=== PATIENT | female | born 1965 | race Caucasian/White ===

== ENCOUNTER → 2020-12-25 00:01 | Outpatient (BNVA) | payer BC, SELFPAY | PROVIDERS: Family Provider Nurse Practitioner Family; PCP Registered Nurse; Visit Provider Registered Nurse | DX: R53.83 Other fatigue (principal); E78.5 Hyperlipidemia, unspecified; Z13.6 Encounter for screening for cardiovascular disorders | CPT/HCPCS: 80053; 80061; 84443; 85025 ==

== ENCOUNTER 2020-12-30 11:01 | Outpatient (CLI) | payer BC, SELFPAY ==
--- NOTE | 2020-12-30 11:06 | MM_ITS ---
WS: [id number] BILATERAL DIGITAL SCREENING MAMMOGRAPHY WITH CAD CLINICAL INFORMATION: SCREENING HISTORY: Screening mammogram. No current complaints. COMPARISON: None. TECHNIQUE: Bilateral CC and MLO views. FINDINGS: Scattered fibroglandular densities bilaterally. 9 mm irregular asymmetric density upper outer left br east measuring 9 mm. This is posterior depth. Recommend left diagnostic mammography and ultrasound fo r further evaluation. Right breast is unremarkable. Bilateral punctate calcifications. MM/[place] [id number] IMPRESSION: BI-RADS: 0-Incomplete: Need additional imaging evaluation FOLLOW UP: Need Additional Imaging Recommend LEFT diagnostic mammography and ultrasound for further evaluation
== END 2020-12-30 11:02 | disposition home or self-care (01) ==
LOC: RADSHAW 11:05
PROVIDERS: PCP Registered Nurse; Visit Provider Registered Nurse
DX: Z12.31 Encounter for screening mammogram for malignant neoplasm of breast (principal)
CPT/HCPCS: 77067

== ENCOUNTER 2021-01-20 11:09 | Outpatient (CLI) | payer BC, SELFPAY ==
--- NOTE | 2021-01-20 11:30 | MM_ITS ---
WS: [id number] LEFT DIGITAL MAMMOGRAPHY WITH CAD CLINICAL INFORMATION: 9 mm irregular asymmetric density LT breast COMPARISON: December 30, 2020 TECHNIQUE: 4 views of the left breast were obtained. FINDINGS: Scattered fibroglandular densities of the left breast. Stable 9 mm irregular asymmetric density upper outer left breast. Ultrasound is pending. ULTRASOUND BREAST LEFT TECHNIQUE: Ultrasound left breast focused area of concern. CLINICAL INFORMATION: 9 mm irregular asymmetric density LT breast COMPARISON: None. FINDINGS: Ultrasound left breast at the 2 and 3:00 position. Hypoechoic lesion at the 3:00 position 3 cm from t he nipple which may be intraductal with increased vascularity. This measures 8.6 x 4.6 x 6.4 mm. Logan mmend further evaluation with ultrasound-guided biopsy. Incidental ductal ectasia at the 2:00 position with a tiny incidental cyst or prominent duct. MM/[place] [id number] IMPRESSION: BI-RADS: 4-Suspicious Finding-Biopsy Should Be Considered FOLLOW UP: US Guided Biopsy Recommended
--- NOTE | 2021-01-20 12:00 | US_ITS ---
WS: [id number] LEFT DIGITAL MAMMOGRAPHY WITH CAD CLINICAL INFORMATION: 9 mm irregular asymmetric density LT breast COMPARISON: December 30, 2020 TECHNIQUE: 4 views of the left breast were obtained. FINDINGS: Scattered fibroglandular densities of the left breast. Stable 9 mm irregular asymmetric density upper outer left breast. Ultrasound is pending. ULTRASOUND BREAST LEFT TECHNIQUE: Ultrasound left breast focused area of concern. CLINICAL INFORMATION: 9 mm irregular asymmetric density LT breast COMPARISON: None. FINDINGS: Ultrasound left breast at the 2 and 3:00 position. Hypoechoic lesion at the 3:00 position 3 cm from t he nipple which may be intraductal with increased vascularity. This measures 8.6 x 4.6 x 6.4 mm. Logan mmend further evaluation with ultrasound-guided biopsy. Incidental ductal ectasia at the 2:00 position with a tiny incidental cyst or prominent duct. US/US breast LT limited* [id number] IMPRESSION: BI-RADS: 4-Suspicious Finding-Biopsy Should Be Considered FOLLOW UP: US Guided Biopsy Recommended
== END 2021-01-20 11:10 | disposition home or self-care (01) ==
LOC: RADSHAW 11:13
PROVIDERS: PCP Registered Nurse; Visit Provider Registered Nurse
DX: N64.89 Other specified disorders of breast (principal); N60.42 Mammary duct ectasia of left breast
CPT/HCPCS: 76642; 77065

== ENCOUNTER 2021-01-23 07:29 | Outpatient (CLI) | payer BC, SELFPAY ==
--- NOTE | 2021-01-23 08:00 | US_ITS ---
WS: [id number] ULTRASOUND-GUIDED LEFT BREAST BIOPSY HISTORY: Intraductal left breast lesion at 3:00 COMPARISON: 01/20/2021 and 12/30/2020 Procedure, risks and complications are explained to the patient. Medications are reviewed. Consent is obtained. The mass in the LEFT breast is localized with ultrasound. Mass localizes to 3:00, 3 cm from the nippl e. Skin is cleansed with ChloraPrep and anesthetized with 1% buffered lidocaine. Small dermatome is m devin. Under sterile conditions mass is biopsied with a 14-gauge Achieve needle. After the initial biop sy this mass nearly completely collapsed upon itself. Multiple core biopsies are performed. Material placed in formalin and sent to pathology for review. No complications encountered. Breast tissue marker (Bard ultrasound enhanced ribbon): Single. Patient left the radiology suite with no complications. Patient is instructed to return to [facility] concerns. Note: This lesion at 3:00, 3 cm from nipple nearly completely collapsed during this biopsy. Biopsy cl ip was placed at the site of the biopsy. Localization for surgical removal may be attempted by ultras ound but stereotactic localization may be necessary if the lesion and biopsy clip are not apparent. US/[place] [id number] IMPRESSION: 1. Uncomplicated core needle biopsy LEFT breast mass at 3:00. PATHOLOGY: Atypical lobular hyperplasia. No invasive malignancy. RECOMMENDATION: Excisional biopsy recommended by pathology.
== END 2021-01-23 07:30 | disposition home or self-care (01) ==
LOC: RAD 07:36
PROVIDERS: PCP Registered Nurse; Visit Provider Registered Nurse
DX: N64.9 Disorder of breast, unspecified (principal); N62 Hypertrophy of breast
CPT/HCPCS: 19083; 88305

== ENCOUNTER → 2021-02-13 14:28 | Outpatient (BNVA) | payer BC, SELFPAY | PROVIDERS: PCP Registered Nurse; Visit Provider Surgery | DX: Z20.822 Contact with and (suspected) exposure to COVID-19 (principal) | CPT/HCPCS: 87635 ==

== ENCOUNTER 2021-02-18 08:01 | Day surgery (SDC) | payer BC, SELFPAY ==
[2021-02-17 13:43] VITALS: BMI 29.8
[2021-02-18] VITALS (7 sets, daily range): BP systolic 105–133; BP diastolic 56–74; PULSE 50–70; RESP 16–18; TEMP 36.2–36.7; O2SAT 93–100
--- NOTE | 2021-02-18 08:10 | US_ITS ---
WS: [id number] ULTRASOUND-GUIDED LEFT BREAST NEEDLE LOCALIZATION HISTORY: LT BREAST MASS Procedure, risks and complications were explained to the patient. Consent is obtained. Skin is cleansed with ChloraPrep and anesthetized with 1% buffered lidocaine. Needle and guidewire pl aced to the area of concern with no complications. Ultrasound guidance performed during the needle lo calization. Guidewire is left within the lesion. Guidewire secured and no complications encountered. Patient is being transported to the OR suite. Specimen radiograph is also reviewed. The small lesion is very difficult to visualize on the specimen . The wire is intact and there is a small area along the wire does appear to be localized and previou sly biopsied lesion. RECOMMENDATIONS: Surgical and oncologic follow-up. US/US breast surgical specimen IMPRESSION: 1. Uncomplicated wire localization of the LEFT breast mass. 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
--- NOTE | 2021-02-18 08:10 | US_ITS ---
WS: [id number] ULTRASOUND-GUIDED LEFT BREAST NEEDLE LOCALIZATION HISTORY: LT BREAST MASS Procedure, risks and complications were explained to the patient. Consent is obtained. Skin is cleansed with ChloraPrep and anesthetized with 1% buffered lidocaine. Needle and guidewire pl aced to the area of concern with no complications. Ultrasound guidance performed during the needle lo calization. Guidewire is left within the lesion. Guidewire secured and no complications encountered. Patient is being transported to the OR suite. Specimen radiograph is also reviewed. The small lesion is very difficult to visualize on the specimen . The wire is intact and there is a small area along the wire does appear to be localized and previou sly biopsied lesion. RECOMMENDATIONS: Surgical and oncologic follow-up. US/[place] [id number] IMPRESSION: 1. Uncomplicated wire localization of the LEFT breast mass. 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
--- NOTE | 2021-02-18 09:19 | W.PM.OPSUD ---
Surgery/Procedure H&P Update DATE OF PROCEDURE: February 18, 2021 DATE H&P PERFORMED: 01/30/21 H&P UPDATE INFORMATION: I have reviewed H&P completed within last 30 days, I have examined patient prior to procedure and No changes to prior documentation PLANNED PROCEDURE: Operation Date: 02/18/21 11:50 Proposed Procedures p Breast Biopsy Needle Localization [id number] N63.20(Left) - Slick Lott MD s Left Breast Lumpectomy(Left) - Slick Lott MD
[2021-02-18] MEDS: sodium chloride 0.9% 1,000 ML 30 ML IV (09:42)
--- NOTE | 2021-02-18 10:50 | ANES.PREANE2 ---
Pre-Anesthetic Assessment Pre-Anesthetic Assessment: Height/Weight: Height 1.63 m Weight 78.925 kg Temp Pulse Resp BP Pulse Ox 98.1 F 70 18 133/56 98 02/18/21 09:29 02/18/21 09:29 02/18/21 09:29 02/18/21 09:29 02/18/21 09:29 Preop Diagnosis: Left breast mammographic abnormality Proposed Procedure: Operation Date: 02/18/21 11:50 Proposed Procedures p Breast Biopsy Needle Localization [id number] N63.20(Left) - Slick Lott MD s Left Breast Lumpectomy(Left) - Slick Lott MD Familial anesthetic complications: None Was Beta Jewel taken within 24 hours: N/A Was Clonidine taken within 24 hours: N/A Last intake: Intake Last Liquid Date 02/17/21 Last Liquid Time 20:00 Last Solid Date 02/17/21 Last Solid Time 20:00 Social: Social History: No alcohol and No tobacco Exam: Pre-Anes Outpt Exam: alert, oriented x 3, clear to auscultation bilaterally and regular rate & rhythm Airway: Cervical ROM: WNL MP: 3 Dentition: Other (poor dentition, multiple missing teeth) Neuropsych: Comments: glacucoma Anesthetic Plan: ASA status: 2 Anesthesia: MAC Risk of > 500 ml blood loss (7ml/kg in children): No Meds/Allergies Current Medications: Current Medications Generic Name Dose Route Start Last Admin Trade Name Freq PRN Reason Stop Dose Admin Sodium Chloride 1,000 mls @ 30 ml s/hr 02/18/21 09:30 02/18/21 09:42 Sodium Chloride 0.9% IV 02/19/21 09:29 30 mls/hr .Q24H MICA Administration PFSH Anesthesia PFSH: Medical History Glaucoma Family History Mother Diabetes Heart disease Father Diabetes Heart disease Social History Smoking and tobacco status: never smoked Alcohol intake: never Adopted: No Caregiver/support person: No Lives independently: No Household members: spouse Marital status: service: No Current occupational status: employed History of recent travel: No Sexually active: Yes Current gender identity: Female Data Anesthesia Cardiac Studies: No Data to Display
--- NOTE | 2021-02-18 12:51 | P.OP_ITS ---
Operative Report Date of procedure: February 18, 2021 Pre-op Diagnosis: Atypical lobular hyperplasia left breast 3 o'clock position Post-op diagnosis: same Procedure Done: Wire localization lumpectomy left breast with shave margins Pathology: Left breast mass 3 o'clock position short stitch superior, long stitch lateral Medial margin outer edge ink Surgeon: Slick Lott Anesthesia: MAC Condition: stable Disposition: PACU Procedure: The wire localization of the mammographic abnormality was performed by the radiologist under ultrasound guidance and the patient was transferred to operating room and placed under MAC after IV antibiotic had been administered. The left breast was prepped and draped in a manner . A curvilinear incision was made over the areolar margin at 3'o clock medial to the marking over the mammographic abnormality, subcutaneous tissue was divided and skin flaps were raised medially and laterally. The localization wire was grasped through the incision and using electrocautery the wire along with the breast tissue contai markus mammographic abnormality was dissected free from the surrounding tissue. Using 2-0 silk suture, short stitch was placed superiorly and a long stitch was placed laterally. Shave margin was obtained from the medial wall of the lumpectomy cavity and the outer edge was inked. The wound was irrigated with saline, hemostasis ensured with electrocautery and subcutaneous tissues approximated using 3-0 running Vicryl suture and skin was closed using running subcuticular 4-0 Monocryl sutures and Dermabond. Fluffs were used for pressure dressing. Patient was transferred to recovery room and stable condition The lumpectomy specimens were sent to mammography to obtain radiological confirmation of complete excision of the mammographic abnormality.
--- NOTE | 2021-02-18 13:56 | ANE.PACU2 ---
Inpatient post-anesthesia follow up: Airway intact: Yes Vital signs: Temperature 97.3 F Pulse Rate 54 Respiratory Rate 16 Blood Pressure 105/74 Pulse Oximetry 94 Oxygen Delivery Me thod Room Air Oxygen Flow Rate Fraction of Inspir ed Oxygen Hydration adequate: Yes Nausea and vomiting: No Pain level: 2 Mental status: Baseline
[2021-02-25 06:20] LABS: Miscellaneous Test See Scanned Lab Rpt
== END 2021-02-18 14:00 | disposition home or self-care (01) ==
PROVIDERS: PCP Registered Nurse; Visit Provider Surgery
PROC: (CPT 19301; principal; 2021-02-18 11:40)
PROC: (CPT 19301; 2021-02-18 11:40)
DX: N62 Hypertrophy of breast (principal)
CPT/HCPCS: 19301; 19285; 88305; 88361; 88374; 96365; C1889; J0690; J2250; J2704; J3010; J7030

== ENCOUNTER 2021-03-06 08:50 | Outpatient (CLI) | payer BC, SELFPAY ==
--- NOTE | 2021-03-06 13:07 | ONC CON_ITS ---
Dr. López New Patient Note Patient: Lynda Dow Unit #: [id number]: 1965 Dicatated By: Boby López M.D.Date of Visit: Mar 06, 2021 Onc MED New Patient/Consult Referring Physician: Dr. KHLOE MCNAIR M.D. 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 She had presented with an abnormal screening mammogram. That study, from 12/30/2020, was BI-RADS 0 with finding of an irregular asymmetric density in the upper outer left breast measuring 9 mm. She then had additional mammographic views and ultrasound on 01/20/2021. The ultrasound was BI-RADS 4 with finding of a hypoechoic lesion at the 3 o'clock position 3 cm from the nipple. It measured 8.6 x 4.6 x 6.4 mm. Also noted was incidental ductal ectasia at the 2 o'clock position with a tiny incidental cyst or prominent duct. Biopsy was recommended. On 01/23/2021 she underwent ultrasound-guided core needle biopsy of the left breast lesion at 3:00. Pathology showed lobular carcinoma in situ. There was no invasive carcinoma identified. On 02/18/2021 she underwent left breast lumpectomy with shave margins under wire localization. Pathology showed lobular carcinoma in situ involving 8 out of 14 blocks submitted. There was no invasive carcinoma identified. The superior, medial, and anterior margins were noted to be involved. The medial margin excision showed lobular carcinoma in situ with involved margin. There was again no invasive carcinoma identified. She is seen now for further management. She has been feeling good generally. She does have some soreness at the lumpectomy site in the left breast and she also has been feeling a little tired. She still has normal activity. ECOG score is 0. She has good appetite. She has been gaining weight gradually. She has not had fever. She has been having hot flashes for the past 6 months to 1 year. Her last menstrual period was 6 months ago. She recently acquired an [id number] natural type estrogen supplement. She has otherwise not had any hormone replacement therapy. Her family history is significant and that a paternal cousin of breast cancer. There has been no other breast or ovarian cancer in the family. Past Medical History: Her medical history is otherwise limited to glaucoma. Past Surgical History: She underwent ultrasound directed core needle biopsy of the left breast on 01/23/2021 and she underewent wire localization left breast lumpectomy with shave margins on 02/18/2021. Her only other surgery was a trigger finger repair on the right hand. Medications: Brimonidine Tartrate 1 Drop(s) (of 0.025 %) Solution Ophthalmic b.i.d., Colace 1 (100 mg) Capsule Oral b.i.d., EstroNatural 1 Tablet Oral daily, HYDROcodone-Acetaminophen 1 (5-325 mg) Tablet Oral q 4 to 6 hours PRN, Ibuprofen 1 Tablet (of 200 mg) Capsule Oral q 6 hours, Lumigan 1 Drop(s) (of 0.01 %) Solution Ophthalmic at bedtime, Ondansetron HCl 1 (4 mg) Tablet Oral q 4 hours, Timolol Hemihydrate 1 Drop(s) (of 0.5 %) Solution Ophthalmic b.i.d. Allergies: Adhesive Tape, Bee Venom, and Latex. Social History: Ms. Dow is . 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 She is a non-smoker. She does not drink alcohol. Family History: Father of heart attack at age 75. Mother of stroke at age 75. Both had diabetes. She has 2 full sisters, both of whom also have diabetes. A paternal cousin of breast cancer. There is otherwise no history of breast or ovarian cancer in the family. Review Of Symptoms: Constitutional - She has been feeling a little tired, but she still has normal activity. Her appetite is good. She has gained weight. She has been having hot flashes for the past 6 months to 1 year. Her last menstrual period was 6 months ago. Her ECOG score is 0, Eyes - She has glaucoma. She has had no recent change in vision, ENMT - No hearing loss or tinnitus. She has allergy related sinus symptoms. No mouth sores. No sore throat or difficulty swallowing, Hematologic/Lymphatic - She has easy bruising, Respiratory - No shortness of breath. No cough. No pleuritic pain or hemoptysis, Cardiovascular - No angina pain. No palpitations, Gastrointestinal - No nausea or vomiting. No heartburn or acid reflux. No diarrhea or constipation. No blood in the stool or black stools, Genitourinary (F) - No dysuria or hematuria. She has frequent urination. No urgency or incontinence, Musculoskeletal - She has pain in her left knee. She has a sore spot in her neck related to previous injury. She has no other joint or bone pain, Integumentary - No skin rash or other skin changes, Neurologic - She has occasional sinus headache and she occasionally has headache associated with the sore spot in her neck. No dizziness. No numbness or tingling. No other focal neurologic symptoms, Psychiatric - No anxiety or depression. She sometimes has difficulty sleeping. Vital Signs: Performed on Mar 06, 2021 09:28: 3, 30.11 (HIGH), 1.85 sq.m, 64 in, 96 %, 52 /min (LOW), 17 /min, 115/73 mm(hg), 97.6 F (LOW), and 175.4 lbs (HIGH). Physical Examination: Constitutional - She appears to be in good general health, Eyes - Sclerae nonicteric. Conjunctivae clear, ENMT - No lesions noted in the oral cavity, Neck - No mass or thyromegaly, Hematologic/Lymphatic - No cervical, clavicular, or axillary adenopathy, Respiratory - Lungs are clear with good air movement bilaterally, Cardiovascular - Heart rhythm is regular. There is no murmur, gallop, or rub noted, Breasts - The right breast shows no mass. There is some induration at the lumpectomy site in the left breast just adjacent to the lateral aspect of the areolar margin. There is a tender nodule more laterally, which I assume is due to postbiopsy hematoma. There is no axillary adenopathy noted, Abdomen - Soft and non-tender. Liver and spleen are not enlarged. There is no abdominal mass or ascites noted and there is no inguinal adenopathy, Back/Spine - No spine or CVA tenderness noted, Extremities - No edema. Pedal pulses are palpable bilaterally, Integumentary - No rashes. No suspicious skin lesions noted, Neurologic - No focal neurologic deficits noted. Problem List: 1. 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 2. She is perimenopausal. 3. She has glaucoma. 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 She has undergone a lumpectomy procedure. Pathology did show positive surgical margins, there was no evidence of invasive cancer. The pathology findings were reviewed with the patient and we discussed the clinic complications. With lobular carcinoma in situ there is no significant risk of the lesion developing into invasive cancer. As such, there is no further treatment indicated for the lesion itself. However, it is an indication of increased risk for further development of invasive breast cancer, and that risk applies to both breasts. The risk is estimated to be in the range of 1 %/year. As such, she is an appropriate candidate for breast cancer risk reduction therapy. As she is perimenopausal, the only approved treatment is tamoxifen, though she would potentially be eligible for transition to an aromatase inhibitor at a later time. I reviewed anticipated side effects with tamoxifen which would likely include hot flashes and vaginal dryness, among others. We also discussed the fact that it has increased risk of thromboembolism which is similar to the risk with oral contraceptives or with hormone replacement therapy and that it has a small risk of endometrial cancer, estimated in the range of 4-5 cases per 1000. The estimated benefit and risk reduction is approximately 50% for all comers, but it has been reported to be as high as 80% in patients with atypical hyperplasia. Given that information she is recommended to begin risk reduction therapy with tamoxifen 20 mg daily. Per NCCN guidelines, she also would potentially be appropriate to have further breast cancer screening with MRI, and I am going to see if I can get that arranged. She also is advised, per NCCN guidelines, to have baseline [employer] screening prior to starting tamoxifen therapy. I will tentatively plan to see her for a 3-month interval follow-up visit. Signed By: Boby López M.D. <<Signature on File>>
== END 2021-03-06 08:51 | disposition home or self-care (01) ==
PROVIDERS: PCP Registered Nurse; Visit Provider Internal Medicine Medical Oncology
DX: D05.02 Lobular carcinoma in situ of left breast (principal); Z78.0 Asymptomatic menopausal state; H40.9 Unspecified glaucoma; Z79.899 Other long term (current) drug therapy; Z79.811 Long term (current) use of aromatase inhibitors
CPT/HCPCS: 99205

== ENCOUNTER → 2021-03-25 09:14 | Outpatient (BNVA) | payer BC, SELFPAY | PROVIDERS: PCP Registered Nurse; Visit Provider Registered Nurse | DX: Z01.419 Encounter for gynecological examination (general) (routine) without abnormal findings (principal) | CPT/HCPCS: 87070; 87205; 88175 ==

== ENCOUNTER 2021-05-15 09:50 | Outpatient (CLI) | payer BC, SELFPAY ==
--- NOTE | 2021-05-15 15:22 | ONC FU_ITS ---
Dr. López Patient Follow-Up Note Patient: Lynda Dow Unit #: [id number]: 1965 Dicatated By: Boby López M.D.Date of Visit:May 15, 2021 Onc Med Follow-up/Prog Note Chief Complaint: Breast cancer. 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 She had presented with an abnormal screening mammogram. That study, from 12/30/2020, was BI-RADS 0 with finding of an irregular asymmetric density in the upper outer left breast measuring 9 mm. She then had additional mammographic views and ultrasound on 01/20/2021. The ultrasound was BI-RADS 4 with finding of a hypoechoic lesion at the 3 o'clock position 3 cm from the nipple. It measured 8.6 x 4.6 x 6.4 mm. Also noted was incidental ductal ectasia at the 2 o'clock position with a tiny incidental cyst or prominent duct. Biopsy was recommended. On 01/23/2021 she underwent ultrasound-guided core needle biopsy of the left breast lesion at 3:00. Pathology showed lobular carcinoma in situ. There was no invasive carcinoma identified. On 02/18/2021 she underwent left breast lumpectomy with shave margins under wire localization. Pathology showed lobular carcinoma in situ involving 8 out of 14 blocks submitted. There was no invasive carcinoma identified. The superior, medial, and anterior margins were noted to be involved. The medial margin excision showed lobular carcinoma in situ with involved margin. There was again no invasive carcinoma identified. I had seen her initially on 03/06/2021, and at that time we discussed the possibility of risk reduction therapy with tamoxifen. 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 The breast MRI was done through the [facility] in [place] on 04/10/2021. The right breast findings included a lobulated enhancing mass with rapid uptake and predominantly persistent delayed kinetics in the anterior 8 o'clock position located 3 cm from the nipple. It measured 1.4 x 1.6 cm. An additional mass with adjacent non-mass enhancement was noted in the more posterior 7 to 8 o'clock position located 11.5 cm from the nipple. The area of enhancement measures up to 4 cm. The left breast showed postsurgical changes laterally. In the central 3 o'clock position located 8 cm from the nipple there was suggestion of a 1.5 cm enhancing mass with rapid uptake and with plateau delayed kinetics. She had further evaluation with bilateral diagnostic 3D Catalino mammography and right breast ultrasound on 04/20/2021. The mammogram did show focal asymmetry measuring approximately 1 cm in size which was noted to correlate with the right breast MRI finding. Ultrasound of the right breast showed an irregular hypoechoic mass at the 9 o'clock position 2 cm from the nipple. It measured approximately 1.3 x 1.2 x 0.8 cm. Benign cysts were noted in the right breast at the 9 o'clock position 4 cm from the nipple and at the 8 o'clock position 8 cm from the nipple. The right axilla demonstrated normal-appearing lymph nodes. On 05/06/2021 she underwent ultrasound directed biopsy of the right breast mass at the 9 o'clock position 2 cm from the nipple. The complete path report is not yet available, but the preliminary report indicated invasive well differentiated ductal carcinoma. She returns now to discuss further management of the breast cancer. Medications: Brimonidine Tartrate 1 Drop(s) (of 0.025 %) Solution Ophthalmic b.i.d., Colace 1 (100 mg) Capsule Oral b.i.d., EstroNatural 1 Tablet Oral daily, HYDROcodone-Acetaminophen 1 (5-325 mg) Tablet Oral q 4 to 6 hours PRN, Ibuprofen 1 Tablet (of 200 mg) Capsule Oral q 6 hours, Lumigan 1 Drop(s) (of 0.01 %) Solution Ophthalmic at bedtime, Ondansetron HCl 1 (4 mg) Tablet Oral q 4 hours, Timolol Hemihydrate 1 Drop(s) (of 0.5 %) Solution Ophthalmic b.i.d. Allergies: Adhesive Tape, Bee Venom, and Latex. Vital Signs: Performed on May 15, 2021 10:01 Height - 64.00 in Weight - 171.2 lbs (LOW) BSA - 1.83 sq.m BMI - 29.39 Temperature - 98.6 F Pulse - 67 /min Respiration - 18 /min BP - 131/81 mm(hg) O2 Sat - 97 % Pain - 0 Fatigue - 3 Problem List: 1. Well differentiated invasive ductal carcinoma of the right breast. Complete pathology report is still pending and her staging is not yet completed. By imaging she appears to have a T1c primary tumor. 2. 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 She underwent biopsy of the left breast lesion on 01/23/2021 followed by left breast lumpectomy on 02/18/2021. Pathology did show involved margins. 3. She is perimenopausal. 4. She has glaucoma. 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 As part of her evaluation for risk reduction therapy she had bilateral breast MRI, which showed a suspicious lesion at the 8 o'clock position of the right breast located 2 to 3 cm from the nipple. This was ultimately confirmed on biopsy to be well differentiated invasive ductal carcinoma. The breast MRI showed an additional lesion in the 7 to 8 o'clock position of the right breast located 11.5 cm from the nipple and suggestion of a 1.5 cm enhancing mass in the central left breast. With those findings, there is concern that she may have bilateral disease and that the right breast disease may be multifocal. The findings on the imaging studies and the pathology on the right breast biopsy were reviewed with the patient and her . We discussed options for further management. She is aware that her treatment will need to include local management for the breast as well as systemic adjuvant therapy. If the second right breast lesion is confirmed to be malignant, she may still potentially be a candidate for breast conservation management if it is in close enough proximity to the known site of invasive cancer. She would otherwise require mastectomy, and in that case it may be best to just proceed with bilateral mastectomy. In either case, she would definitely require axillary sentinel lymph node biopsy on the right. Left axillary sentinel lymph node biopsy would also be required if she were confirmed to have invasive cancer in the left breast. Given the complexity of her situation, I am inclined to recommend that we proceed with MRI directed biopsy of the second right breast lesion and of the suspicious lesion in the left breast with recommendations for further surgery to follow. I have discussed this with Dr. Markie Sosa at [facility] [place], and he is in agreement. He is also recommending that we go ahead and arrange for consultations with one of their surgeons. Signed By: Boby López M.D. <<Signature on File>>
== END 2021-05-15 09:51 | disposition home or self-care (01) ==
PROVIDERS: PCP Registered Nurse; Visit Provider Internal Medicine Medical Oncology
DX: C50.811 Malignant neoplasm of overlapping sites of right female breast (principal); D05.02 Lobular carcinoma in situ of left breast; Z90.12 Acquired absence of left breast and nipple
CPT/HCPCS: 99215

== ENCOUNTER 2021-11-04 10:01 | Outpatient (CLI) | payer OTHER, SELFPAY ==
--- NOTE | 2021-11-04 17:07 | ONC FU_ITS ---
Dr. López Patient Follow-Up Note Patient: Lynda Dow Unit #: [id number]: 1965 Dicatated By: Boby López M.D.Date of Visit:Nov 04, 2021 Onc Med Follow-up/Prog Note Chief Complaint: Breast cancer. History of Present Illness: This is a 56 year-old woman with well differentiated invasive ductal carcinoma of the right breast, ER/MO positive and HER-2/rocky negative. 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 She had presented with an abnormal screening mammogram. That study, from 12/30/2020, was BI-RADS 0 with finding of an irregular asymmetric density in the upper outer left breast measuring 9 mm. She then had additional mammographic views and ultrasound on 01/20/2021. The ultrasound was BI-RADS 4 with finding of a hypoechoic lesion at the 3 o'clock position 3 cm from the nipple. It measured 8.6 x 4.6 x 6.4 mm. Also noted was incidental ductal ectasia at the 2 o'clock position with a tiny incidental cyst or prominent duct. On 01/23/2021 she underwent ultrasound-guided core needle biopsy of the left breast lesion at 3:00. Pathology showed lobular carcinoma in situ. There was no invasive carcinoma identified. On 02/18/2021 she underwent left breast lumpectomy with shave margins under wire localization. Pathology showed lobular carcinoma in situ involving 8 out of 14 blocks submitted. There was no invasive carcinoma identified. The superior, medial, and anterior margins were noted to be involved. The medial margin excision showed lobular carcinoma in situ with involved margin. There was again no invasive carcinoma identified. I had seen her initially on 03/06/2021, and at that time we discussed the possibility of risk reduction therapy with tamoxifen. 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 The breast MRI was done through the [facility] in [place] on 04/10/2021. The right breast findings included a lobulated enhancing mass with rapid uptake and predominantly persistent delayed kinetics in the anterior 8 o'clock position located 3 cm from the nipple. It measured 1.4 x 1.6 cm. An additional mass with adjacent non-mass enhancement was noted in the more posterior 7 to 8 o'clock position located 11.5 cm from the nipple. The area of enhancement measured up to 4 cm. The left breast showed postsurgical changes laterally. In the central 3 o'clock position located 8 cm from the nipple there was suggestion of a 1.5 cm enhancing mass with rapid uptake and with plateau delayed kinetics. She had further evaluation with bilateral diagnostic 3D Actalino mammography and right breast ultrasound on 04/20/2021. The mammogram did show focal asymmetry measuring approximately 1 cm in size which was noted to correlate with the right breast MRI finding. Ultrasound of the right breast showed an irregular hypoechoic mass at the 9 o'clock position 2 cm from the nipple. It measured approximately 1.3 x 1.2 x 0.8 cm. Benign cysts were noted in the right breast at the 9 o'clock position 4 cm from the nipple and at the 8 o'clock position 8 cm from the nipple. The right axilla demonstrated normal-appearing lymph nodes. On 05/06/2021 she underwent ultrasound directed biopsy of the right breast mass at the 9 o'clock position 2 cm from the nipple. Pathology showed invasive well differentiated ductal carcinoma. The breast prognostic profile showed ER positive at 94% and MO positive at 7%. The tumor was negative for overexpression of HER-2/rocky, 1+ by IHC. MRI directed biopsy of a lesion at the 3 to 4:30 o'clock position of the left breast on 06/15/2021 showed lobular carcinoma in situ with no invasive malignancy. She then had surgical consultation with Dr. Bettencourt, and on 09/17/2021 she underwent bilateral skin sparing mastectomy with injection of the right breast for ID of sentinel lymph node. As there was no clearly identifiable sentinel lymph node and there were no clinically suspicious lymph nodes identified, lymph node biopsy was not performed. Pathology on the right breast showed invasive well differentiated ductal carcinoma measuring 1.4 cm in greatest dimension. There was surrounding lobular carcinoma in situ scattered in the entire breast. The margins were free of carcinoma. The left breast showed lobular carcinoma in situ scattered in the entire breast with no invasive carcinoma identified. Her genetic screening was negative. She is seen for a follow-up visit. She has had an uneventful recovery from her bilateral mastectomy/reconstruction in August. She says her energy is getting better and she is doing light duty work. ECOG score is 1. Her appetite is down a little. She has not had fever or night sweats. She does report having occasional hot flashes. She is perimenopausal. Her last menstrual period was in September 2020. She has some sinus drainage. She has not had sore mouth or throat. She does not complain of cough, and she has not been having shortness of breath or chest pain. She has no GI or complaints. She has no significant joint or bone pain. She does not complain of headache or dizziness, and she has no focal neurologic symptoms. She has been having some emotional issues associated with the mastectomies, but she seems to be adjusting adequately. Medications: Brimonidine Tartrate 1 Drop(s) (of 0.025 %) Solution Ophthalmic b.i.d., Cyclobenzaprine HCl (5 mg) Tablet Oral Take as Directed, Lumigan 1 Drop(s) (of 0.01 %) Solution Ophthalmic at bedtime, Ondansetron HCl 1 (4 mg) Tablet Oral q 4 hours, Timolol Hemihydrate 1 Drop(s) (of 0.5 %) Solution Ophthalmic b.i.d. Allergies: Adhesive Tape, Bee Venom, and Latex. Vital Signs: Performed on Nov 04, 2021 10:31 Height - 64.00 in Weight - 166.0 lbs (LOW) BSA - 1.81 sq.m BMI - 28.49 Temperature - 97.2 F (LOW) Pulse - 68 /min Respiration - 16 /min BP - 127/74 mm(hg) O2 Sat - 98 % Pain - 0 Fatigue - 4 Physical Examination: Constitutional - She looks good generally, Eyes - Sclerae nonicteric. Conjunctivae clear, ENMT - No lesions noted in the oral cavity, Hematologic/Lymphatic - No cervical or clavicular adenopathy, Respiratory - Lungs are clear with good air movement bilaterally, Cardiovascular - Heart rhythm is regular. There is no murmur, gallop, or rub noted, Breasts - The chest wall/reconstruction appears well-healed bilaterally. There is no axillary adenopathy noted, Abdomen - Soft. Liver and spleen are not enlarged. There is no abdominal mass or ascites noted and there is no inguinal adenopathy, Extremities - No edema, Neurologic - No focal neurologic deficits noted. Problem List: 1. Well differentiated invasive ductal carcinoma of the right breast, ER/MO positive and HER-2/rocky negative. Her disease was pathologic stage T1c, Nx. It is presumed to be stage IA. 2. Lobular carcinoma in situ of both breasts. 3. Glaucoma. 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 She subsequently was confirmed to have invasive well-differentiated ductal carcinoma of the right breast, ER/MO positive and HER-2/rocky negative. The right breast also showed lobular carcinoma in situ. She underwent bilateral mastectomy/reconstruction on 09/17/2021. Pathology confirmed invasive well-differentiated ductal carcinoma in the right breast measuring 1.4 cm in maximum dimension. Lobular carcinoma in situ was scattered throughout both breasts. Right axillary sentinel lymph node biopsy was attempted, but there was no identifiable sentinel lymph node and there were no clinically suspicious lymph nodes identified. As such, she had no axillary node sampling. Pathologic staging was T1c, Nx. She is presumed to have stage IA disease. With hormone receptor positive invasive ductal cancer, she is advised to proceed with adjuvant endocrine therapy. As she is perimenopausal, she will initiate treatment with tamoxifen for least 1 to 2 years, at which point she can then transition to an aromatase inhibitor. She had started tamoxifen for risk reduction, but it was just very short-term use, having been discontinued when she was diagnosed with invasive cancer. As such, she will now restart the tamoxifen at 20 mg daily. She is reminded that it has a risk of thromboembolism and a small risk of causing endometrial cancer. She will be scheduled for a follow-up visit in 3 months. Signed By: Boby López M.D. <<Signature on File>>
== END 2021-11-04 10:02 | disposition home or self-care (01) ==
PROVIDERS: PCP Registered Nurse; Visit Provider Internal Medicine Medical Oncology
DX: C50.911 Malignant neoplasm of unspecified site of right female breast (principal); Z17.0 Estrogen receptor positive status [ER+]; H40.9 Unspecified glaucoma; Z79.810 Long term (current) use of selective estrogen receptor modulators (SERMs)
CPT/HCPCS: 99215

== ENCOUNTER 2022-02-26 08:05 | Oncology outpatient (recurring) (ONCR) | payer OTHER, SELFPAY | END 2022-03-25 23:59 | disposition home or self-care (01) | PROVIDERS: PCP Registered Nurse; Referring Provider Surgery; Visit Provider Nurse Practitioner Family | DX: C50.311 Malignant neoplasm of lower-inner quadrant of right female breast (principal); Z17.0 Estrogen receptor positive status [ER+]; Z90.13 Acquired absence of bilateral breasts and nipples; R53.83 Other fatigue; Z79.811 Long term (current) use of aromatase inhibitors; Z79.818 Long term (current) use of other agents affecting estrogen receptors and estrogen levels | CPT/HCPCS: 36415; 80053; 85025 ==

== ENCOUNTER 2022-05-12 12:17 | Oncology outpatient (recurring) (ONCR) | payer OTHER, SELFPAY ==
[2022-05-12 13:04] LABS: Basophils % 0.5 %; Eosinophils # 0.1 10^3/uL (0.0-0.8); Eosinophils % 2.1 %; Hematocrit 40.7 % (37.0-47.0); Hemoglobin 12.7 g/dL (11.5-15.3); Lymphocytes # 1.3 10^3/uL (0.8-4.8); Lymphocytes % 19.9 %; Mean Corpuscular HGB Conc 31.2 g/dL (30.0-36.0); Mean Corpuscular Hemoglobin 27.5 pg (28.0-34.0); Mean Corpuscular Volume 88.3 fl (81-99); Mean Platelet Volume 11.7 fL (7.4-10.4); Monocytes # 0.4 10^3/uL (0.2-0.9); Monocytes % 5.8 %; Neutrophils # 4.67 10^3/uL (1.8-7.7); Neutrophils % 71.5 %; Nucleated Red Blood Cells % 0 %; Platelet Count 238 10^3/cmm (130-400); Red Blood Count 4.61 10^6/uL (4.1-5.3); Red Cell Distribution Width 12.9 % (12.1-15.1); White Blood Count 6.5 10^3/uL (4.0-10.0)
[2022-05-12 13:24] LABS: Alanine Aminotransferase 10 U/L (0-33); Albumin Level 4.1 g/dL (3.5-5.2); Alkaline Phosphatase 92 U/L (35-105); Anion Gap 12.7 (5-19); Aspartate Amino Transferase 14 U/L (0-32); Blood Urea Nitrogen 8 mg/dL (6-20); Calcium 9.6 mg/dL (8.5-10.5); Carbon Dioxide 26 mmol/L (22-29); Chloride 106 mmol/L (98-107); Globulin 2.5 g/dL (1.3-4.6); Glomerular Filtration Rate 74.5 mL/min (90-130); Glucose 71 mg/dL (65-115); Osmolality Calculated 289 mOsm/kg (285-295); Potassium 3.7 mmol/L (3.5-5.1); Sodium 141 mmol/L (136-145); Total Bilirubin 0.4 mg/dL (0.15-1.2); Total Protein 6.6 g/dL (6.6-8.7)
== END 2022-05-26 23:59 | disposition home or self-care (01) ==
PROVIDERS: Nurse Practitioner; PCP Registered Nurse; Visit Provider Nurse Practitioner Family
DX: C50.811 Malignant neoplasm of overlapping sites of right female breast (principal); Z17.0 Estrogen receptor positive status [ER+]; Z90.13 Acquired absence of bilateral breasts and nipples; Z79.811 Long term (current) use of aromatase inhibitors; R53.83 Other fatigue
CPT/HCPCS: 80053; 85025

== ENCOUNTER 2022-08-23 13:10 | Oncology outpatient (recurring) (ONCR) | payer OTHER, SELFPAY ==
[2022-08-23 13:38] LABS: Basophils # 0.1 10^3/uL (0.0-0.1); Basophils % 0.8 %; Eosinophils # 0.2 10^3/uL (0.0-0.8); Eosinophils % 2.5 %; Hemoglobin 13.7 g/dL (11.5-15.3); Lymphocytes # 1.8 10^3/uL (0.8-4.8); Lymphocytes % 29.4 %; Mean Corpuscular HGB Conc 31.1 g/dL (30.0-36.0); Mean Corpuscular Hemoglobin 27.7 pg (28.0-34.0); Mean Corpuscular Volume 88.9 fl (81-99); Mean Platelet Volume 11.1 fL (7.4-10.4); Monocytes # 0.4 10^3/uL (0.2-0.9); Neutrophils # 3.66 10^3/uL (1.8-7.7); Neutrophils % 61.1 %; Nucleated Red Blood Cells % 0 %; Platelet Count 240 10^3/cmm (130-400); Red Blood Count 4.95 10^6/uL (4.1-5.3); Red Cell Distribution Width 12.7 % (12.1-15.1)
[2022-08-23 13:51] LABS: Chloride 105 mmol/L (98-107); Sodium 138 mmol/L (136-145)
[2022-08-23 14:05] LABS: Alanine Aminotransferase 13 U/L (0-33); Albumin Level 4.3 g/dL (3.5-5.2); Alkaline Phosphatase 93 U/L (35-105); Aspartate Amino Transferase 17 U/L (0-32); Blood Urea Nitrogen 10 mg/dL (6-20); Calcium 9.9 mg/dL (8.5-10.5); Carbon Dioxide 23 mmol/L (22-29); Globulin 2.8 g/dL (1.3-4.6); Glomerular Filtration Rate 74.2 mL/min (90-130); Glucose 108 mg/dL (65-115); Osmolality Calculated 286 mOsm/kg (285-295); Total Bilirubin 0.4 mg/dL (0.15-1.2); Total Protein 7.1 g/dL (6.6-8.7)
== END 2022-08-25 23:59 | disposition home or self-care (01) ==
LOC: ONCMED 13:11
PROVIDERS: PCP Registered Nurse; Visit Provider Nurse Practitioner Family
DX: C50.311 Malignant neoplasm of lower-inner quadrant of right female breast (principal); Z17.0 Estrogen receptor positive status [ER+]
CPT/HCPCS: 36415; 80053; 85025

== ENCOUNTER 2023-05-31 13:09 | Oncology outpatient (recurring) (ONCR) | payer OTHER, SELFPAY ==
[2023-05-31 13:28] VITALS: BP 126/73; PULSE 55; RESP 18; TEMP 36.8; O2SAT 94
[2023-05-31 13:47] LABS: Basophils % 0.6 %; Eosinophils # 0.2 10^3/uL (0.0-0.8); Eosinophils % 2.9 %; Hematocrit 39.9 % (36-47); Lymphocytes # 1.8 10^3/uL (0.8-4.8); Lymphocytes % 29.1 %; Mean Corpuscular HGB Conc 31.6 g/dL (30-55); Mean Corpuscular Volume 88.7 fl (85-98); Mean Platelet Volume 11.2 fL (7.4-10.4); Monocytes # 0.4 10^3/uL (0.2-0.9); Neutrophils # 3.71 10^3/uL (1.8-7.7); Neutrophils % 60.1 %; Nucleated Red Blood Cells % 0 %; Platelet Count 238 10^3/cmm (157-399); Red Cell Distribution Width 12.8 % (12.1-15.1); White Blood Count 6.18 10^3/uL (3.29-11.43)
[2023-05-31 14:02] LABS: Alanine Aminotransferase 9 U/L (0-33); Albumin Level 4.3 g/dL (3.5-5.2); Alkaline Phosphatase 87 U/L (35-105); Anion Gap 14.1 (5-19); Aspartate Amino Transferase 17 U/L (0-32); Blood Urea Nitrogen 8 mg/dL (6-20); Carbon Dioxide 24 mmol/L (22-29); Chloride 110 mmol/L (98-107); Globulin 2.3 g/dL (1.3-4.6); Glomerular Filtration Rate 86.6 mL/min (90-130); Glucose 118 mg/dL (65-115); Osmolality Calculated 297 mOsm/kg (285-295); Potassium 4.1 mmol/L (3.5-5.1); Sodium 144 mmol/L (136-145); Total Bilirubin 0.4 mg/dL (0.15-1.2); Total Protein 6.6 g/dL (6.6-8.7)
== END 2023-06-25 23:59 | disposition home or self-care (01) ==
PROVIDERS: Internal Medicine Medical Oncology; PCP Registered Nurse; Visit Provider Nurse Practitioner Family
DX: C50.311 Malignant neoplasm of lower-inner quadrant of right female breast (principal)
CPT/HCPCS: 36415; 80053; 85025

== ENCOUNTER 2023-11-29 12:27 | Outpatient (CLI) | payer OTHER, SELFPAY ==
--- NOTE | 2023-11-29 13:00 | XR_ITS ---
WS: [id number] SCREENING DEXA SCAN [employer] CLINICAL INFORMATION: Starting on aromatase inhibitor COMPARISON: None. FINDINGS: The L1-L4 bone mineral density measures 1.126 g/cm2. This corresponds to a T score score of -0.5 and Z score of 0.2. Left femoral neck bone mineral density measures 0.929 g/cm2. This corresponds to a T score of -0.6 an d Z score of -0.1. Right femoral neck bone mineral density measures 0.924 g/cm2. This corresponds to a T score -0.7of an d Z score of -0.2. Mean femoral neck bone mineral density measures 0.927 g/cm2. This corresponds to a T score of -0.6 an d Z score of -0.1. IMPRESSION: Normal bone mineralization. Patient's FRAX calculated 10 year probability for major osteoporotic fracture is 6.7% and osteoporoti c hip fracture is 0.4%.
== END 2023-11-29 12:28 | disposition home or self-care (01) ==
LOC: RAD 12:28
PROVIDERS: PCP Registered Nurse; Visit Provider Nurse Practitioner Family
DX: C50.311 Malignant neoplasm of lower-inner quadrant of right female breast (principal)
CPT/HCPCS: 77080

== ENCOUNTER 2023-11-30 12:41 | Oncology outpatient (recurring) (ONCR) | payer OTHER, SELFPAY ==
[2023-11-30 12:45] LABS: Basophils % 0.5 %; Eosinophils # 0.1 10^3/uL (0.0-0.8); Eosinophils % 2.3 %; Hematocrit 40.8 % (36-47); Lymphocytes # 1.3 10^3/uL (0.8-4.8); Lymphocytes % 23.3 %; Mean Corpuscular HGB Conc 32.1 g/dL (30-55); Mean Corpuscular Hemoglobin 27.7 pg (27-33); Mean Corpuscular Volume 86.3 fl (85-98); Monocytes # 0.3 10^3/uL (0.2-0.9); Monocytes % 5.2 %; Neutrophils # 3.79 10^3/uL (1.8-7.7); Neutrophils % 68.5 %; Nucleated Red Blood Cells % 0 %; Platelet Count 256 10^3/cmm (157-399); Red Blood Count 4.73 10^6/uL (3.85-5.65); Red Cell Distribution Width 12.7 % (12.1-15.1); White Blood Count 5.54 10^3/uL (3.29-11.43)
[2023-11-30 13:15] LABS: Alanine Aminotransferase 12 U/L (0-33); Albumin Level 4.2 g/dL (3.5-5.2); Alkaline Phosphatase 93 U/L (35-105); Anion Gap 12.9 (5-19); Aspartate Amino Transferase 14 U/L (0-32); Blood Urea Nitrogen 9 mg/dL (6-20); Calcium 8.6 mg/dL (8.5-10.5); Carbon Dioxide 25 mmol/L (22-29); Chloride 107 mmol/L (98-107); Globulin 2.5 g/dL (1.3-4.6); Glomerular Filtration Rate 86.2 mL/min (90-130); Glucose 112 mg/dL (65-115); Osmolality Calculated 291 mOsm/kg (285-295); Potassium 3.9 mmol/L (3.5-5.1); Sodium 141 mmol/L (136-145); Total Bilirubin 0.3 mg/dL (0.15-1.2); Total Protein 6.7 g/dL (6.6-8.7)
== END 2023-12-25 23:59 | disposition home or self-care (01) ==
PROVIDERS: Nurse Practitioner Family; PCP Registered Nurse; Visit Provider Nurse Practitioner Family
DX: C50.311 Malignant neoplasm of lower-inner quadrant of right female breast (principal)
CPT/HCPCS: 36415; 80053; 85025

== ENCOUNTER 2024-08-28 11:03 | Oncology outpatient (recurring) (ONCR) | payer OTHER, SELFPAY ==
[2024-08-28 11:27] LABS: Basophils % 0.5 %; Eosinophils # 0.2 10^3/uL (0.0-0.8); Hematocrit 42.2 % (36-47); Lymphocytes # 1.6 10^3/uL (0.8-4.8); Lymphocytes % 26.5 %; Mean Corpuscular HGB Conc 31.5 g/dL (30-55); Mean Corpuscular Hemoglobin 27.6 pg (27-33); Mean Corpuscular Volume 87.6 fl (85-98); Mean Platelet Volume 11.1 fL (7.4-10.4); Monocytes # 0.5 10^3/uL (0.2-0.9); Monocytes % 7.8 %; Neutrophils # 3.67 10^3/uL (1.8-7.7); Nucleated Red Blood Cells % 0 %; Platelet Count 261 10^3/cmm (157-399); Red Blood Count 4.82 10^6/uL (3.85-5.65); Red Cell Distribution Width 13.2 % (12.1-15.1); White Blood Count 5.92 10^3/uL (3.29-11.43)
[2024-08-28 11:41] LABS: Alanine Aminotransferase 16 U/L (0-33); Albumin Level 4.4 g/dL (3.5-5.2); Alkaline Phosphatase 141 U/L (35-105); Anion Gap 16.8 (5-19); Aspartate Amino Transferase 19 U/L (0-32); Blood Urea Nitrogen 8 mg/dL (6-20); Calcium 9.3 mg/dL (8.5-10.5); Carbon Dioxide 23 mmol/L (22-29); Chloride 103 mmol/L (98-107); Creatinine Clr Calc Pharmacy 87.7927; Globulin 2.5 g/dL (1.3-4.6); Glomerular Filtration Rate 85.9 mL/min (90-130); Glucose 94 mg/dL (65-115); Osmolality Calculated 286 mOsm/kg (285-295); Potassium 3.8 mmol/L (3.5-5.1); Sodium 139 mmol/L (136-145); Total Bilirubin 0.4 mg/dL (0.15-1.2); Total Protein 6.9 g/dL (6.6-8.7)
== END 2024-09-25 23:59 | disposition home or self-care (01) ==
PROVIDERS: PCP Registered Nurse; Visit Provider Nurse Practitioner Family
DX: C50.311 Malignant neoplasm of lower-inner quadrant of right female breast (principal); D05.02 Lobular carcinoma in situ of left breast
CPT/HCPCS: 36415; 80053; 85025

== ENCOUNTER 2024-12-18 08:54 | Oncology outpatient (recurring) (ONCR) | payer OTHER, SELFPAY ==
[2024-12-18 09:36] LABS: Basophils % 0.8 %; Eosinophils # 0.1 10^3/uL (0.0-0.8); Eosinophils % 2.4 %; Hematocrit 43.6 % (36-47); Lymphocytes # 1.5 10^3/uL (0.8-4.8); Lymphocytes % 27.3 %; Mean Corpuscular HGB Conc 32.3 g/dL (30-55); Mean Corpuscular Hemoglobin 28.1 pg (27-33); Mean Platelet Volume 10.6 fL (7.4-10.4); Monocytes # 0.4 10^3/uL (0.2-0.9); Neutrophils # 3.31 10^3/uL (1.8-7.7); Neutrophils % 62.1 %; Nucleated Red Blood Cells % 0 %; Platelet Count 260 10^3/cmm (157-399); Red Blood Count 5.01 10^6/uL (3.85-5.65); Red Cell Distribution Width 12.7 % (12.1-15.1); White Blood Count 5.32 10^3/uL (3.29-11.43)
[2024-12-18 09:57] LABS: Alanine Aminotransferase 10 U/L (0-33); Albumin Level 4.4 g/dL (3.5-5.2); Alkaline Phosphatase 120 U/L (35-105); Aspartate Amino Transferase 14 U/L (0-32); Blood Urea Nitrogen 11 mg/dL (6-20); Calcium 9.3 mg/dL (8.5-10.5); Carbon Dioxide 23 mmol/L (22-29); Chloride 102 mmol/L (98-107); Globulin 2.5 g/dL (1.3-4.6); Glomerular Filtration Rate 85.9 mL/min (90-130); Glucose 104 mg/dL (65-115); Osmolality Calculated 288 mOsm/kg (285-295); Sodium 139 mmol/L (136-145); Total Bilirubin 0.6 mg/dL (0.15-1.2); Total Protein 6.9 g/dL (6.6-8.7)
== END 2024-12-24 23:59 | disposition home or self-care (01) ==
PROVIDERS: Internal Medicine Medical Oncology; PCP Registered Nurse; Visit Provider Nurse Practitioner Family
DX: C50.311 Malignant neoplasm of lower-inner quadrant of right female breast (principal)
CPT/HCPCS: 36415; 80053; 85025

== ENCOUNTER 2025-03-19 09:12 | Oncology outpatient (recurring) (ONCR) | payer OTHER, SELFPAY ==
[2025-03-19 09:56] LABS: Alkaline Phosphatase 134 U/L (35-105)
== END 2025-03-25 23:59 | disposition home or self-care (01) ==
PROVIDERS: Internal Medicine Medical Oncology; PCP Registered Nurse; Visit Provider Nurse Practitioner
DX: C50.311 Malignant neoplasm of lower-inner quadrant of right female breast (principal)
CPT/HCPCS: 36415; 84075

== ENCOUNTER 2025-04-02 09:33 | Oncology outpatient (recurring) (ONCR) | payer OTHER, SELFPAY ==
[2025-04-02 09:58] LABS: Hematocrit 41.5 % (36-47); Hemoglobin 13.30 g/dL (11.27-16.99); Mean Corpuscular HGB Conc 32.0 g/dL (30-55); Mean Corpuscular Hemoglobin 28.4 pg (27-33); Mean Corpuscular Volume 88.5 fl (85-98); Nucleated Red Blood Cells % 0 %; Platelet Count 252 10^3/cmm (157-399); Red Blood Count 4.69 10^6/uL (3.85-5.65); White Blood Count 5.32 10^3/uL (3.29-11.43)
[2025-04-02 10:17] LABS: Alanine Aminotransferase 12 U/L (0-33); Albumin Level 4.4 g/dL (3.5-5.2); Alkaline Phosphatase 134 U/L (35-105); Anion Gap 15.6 (5-19); Aspartate Amino Transferase 14 U/L (0-32); Blood Urea Nitrogen 8 mg/dL (6-20); Calcium 9.3 mg/dL (8.5-10.5); Carbon Dioxide 25 mmol/L (22-29); Chloride 106 mmol/L (98-107); Creatinine Clr Calc Pharmacy 77.0383; Globulin 2.5 g/dL (1.3-4.6); Glucose 104 mg/dL (65-115); Osmolality Calculated 293 mOsm/kg (285-295); Potassium 4.6 mmol/L (3.5-5.1); Sodium 142 mmol/L (136-145); Total Protein 6.9 g/dL (6.6-8.7)
== END 2025-04-25 23:59 | disposition home or self-care (01) ==
PROVIDERS: PCP Registered Nurse; Visit Provider Nurse Practitioner
DX: D05.02 Lobular carcinoma in situ of left breast (principal)
CPT/HCPCS: 36415; 80053; 85025

== ENCOUNTER 2025-07-08 08:10 | Oncology outpatient (recurring) (ONCR) | payer OTHER, SELFPAY ==
[2025-07-08 08:45] LABS: Hematocrit 42.2 % (36-47); Hemoglobin 13.30 g/dL (11.27-16.99); Mean Corpuscular HGB Conc 31.5 g/dL (30-55); Mean Corpuscular Hemoglobin 27.3 pg (27-33); Mean Corpuscular Volume 86.5 fl (85-98); Nucleated Red Blood Cells % 0 %; Platelet Count 252 10^3/cmm (157-399); Red Blood Count 4.88 10^6/uL (3.85-5.65); White Blood Count 6.48 10^3/uL (3.29-11.43)
[2025-07-08 09:03] LABS: Alanine Aminotransferase 10 U/L (0-33); Albumin Level 4.4 g/dL (3.5-5.2); Alkaline Phosphatase 122 U/L (35-105); Anion Gap 16.9 (5-19); Aspartate Amino Transferase 18 U/L (0-32); Blood Urea Nitrogen 10 mg/dL (6-20); Calcium 9.5 mg/dL (8.5-10.5); Carbon Dioxide 24 mmol/L (22-29); Chloride 105 mmol/L (98-107); Creatinine Clr Calc Pharmacy 74.9115; Globulin 2.7 g/dL (1.3-4.6); Glucose 115 mg/dL (65-115); Osmolality Calculated 294 mOsm/kg (285-295); Potassium 3.9 mmol/L (3.5-5.1); Sodium 142 mmol/L (136-145); Total Protein 7.1 g/dL (6.6-8.7)
== END 2025-07-26 23:59 | disposition home or self-care (01) ==
PROVIDERS: PCP Registered Nurse; Visit Provider Nurse Practitioner
DX: C50.311 Malignant neoplasm of lower-inner quadrant of right female breast (principal)
CPT/HCPCS: 36415; 80053; 85025